=== PATIENT | female | born 1935 | race Hispanic/Latino ===

== ENCOUNTER 2018-03-22 09:32 | Day surgery (SDC) | payer MEDICARE ==
[~2018-03-22] VITALS: Ht 152.4 cm; Wt 56.7 kg
[2018-03-22] VITALS (9 sets, daily range): BP systolic 115–193; BP diastolic 50–70
[~2018-03-22 09:32] MED LIST: ALPR1TAB2 PO; AMLO10TA7 PO; APIX2.5T PO; ATOR40TA71 PO; DONE10TA43 PO; LEVE250T PO; LEVO50TA11 PO; MEMA5TAB15 PO; METO-408 PO; OLAN5TAB27 PO; SERT50TA12 PO; SODIUM CHLORIDE 0.9% 1000ML 1,000 ML IV ONE; TEMA7.5C19 PO
[2018-03-22] MEDS ORDERED: IOHEXOL-350 50ML VIAL IV ONE (12:04)
[2018-03-22] MEDS ORDERED: MIDAZOLAM HCL 1 MG/ML 2ML VIAL ONE (12:07)
[2018-03-22] MEDS ORDERED: DEXAMETHASONE SOD PHOSPHATE 10MG/ML 1ML VIAL ONE (12:07)
[2018-03-22] MEDS ORDERED: GLYCOPYRROLATE 1 MG/5 ML SYRINGE ONE (12:07)
[2018-03-22] MEDS ORDERED: ONDANSETRON HCL 4 MG/2 ML VIAL ONE (12:07)
[2018-03-22] MEDS ORDERED: PROPOFOL 10 MG/ML 20ML VIAL IV ONE (12:07)
[2018-03-22] MEDS ORDERED: LIDOCAINE PF 2% 5ML ABBOJECT ONE (12:07)
[2018-03-22] MEDS ORDERED: NEOSTIGMINE 5MG/5ML SYR IV ONE (12:07)
[2018-03-22] MEDS ORDERED: ROCURONIUM 10MG/1ML SYR 10 MG/ML ML ONE (12:07)
[2018-03-22] MEDS ORDERED: FENTANYL CITRATE PF 50 MCG/1 ML 2ML VIAL ONE (12:08)
== END 2018-03-22 13:35 | disposition home or self-care (01) ==
LOC: DAH 09:32
PROVIDERS: ATTEND Internal Medicine
DX: K29.70 Gastritis, unspecified, without bleeding (principal); K80.20 Calculus of gallbladder without cholecystitis without obstruction; I10 Essential (primary) hypertension; J45.909 Unspecified asthma, uncomplicated; F15.90 Other stimulant use, unspecified, uncomplicated; Z79.01 Long term (current) use of anticoagulants; Z79.899 Other long term (current) drug therapy; Z88.1 Allergy status to other antibiotic agents; Z88.8 Allergy status to other drugs, medicaments and biological substances; Z93.1 Gastrostomy status; Z95.0 Presence of cardiac pacemaker; Z98.890 Other specified postprocedural states; Z96.643 Presence of artificial hip joint, bilateral; Z90.710 Acquired absence of both cervix and uterus; Z86.73 Personal history of transient ischemic attack (TIA), and cerebral infarction without residual deficits; Z79.2 Long term (current) use of antibiotics
CPT/HCPCS: 43237; 43239; 88304; 93005; A4606; J1100; J2001; J2250; J2405; J2704; J2710; J3010; J3490; J7030; 43231; 43261; Q9967